=== PATIENT | male | born 2005 | race Caucasian/White ===

== ENCOUNTER → 2024-10-01 13:32 | Outpatient (REF) | payer BC, SELFPAY | LOC: RAD 13:32 | PROVIDERS: ATTENDING PHYSICIAN Orthopaedic Surgery Hand Surgery; FAMILY PHYSICIAN Internal Medicine | DX: M25.511 Pain in right shoulder (principal) | CPT/HCPCS: 23350; 73040; 73222 ==

== ENCOUNTER 2025-02-12 06:05 | Day surgery (SDC) | payer BC, SELFPAY ==
[2025-02-12] VITALS (8 sets, daily range): BP systolic 117–139; BP diastolic 56–80; BMI 23.1
[2025-02-12] MEDS: CELEBREX 200 MG PO (07:12)
[2025-02-12] MEDS: TYLENOL 1000 MG PO (07:13)
[2025-02-12] MEDS: NORMOSOL-R/PLASMALYTE-A 1000 IV (07:16)
== END 2025-02-12 11:45 | disposition home or self-care (01) ==
LOC: SDS 06:05
PROVIDERS: ATTENDING PHYSICIAN Orthopaedic Surgery Hand Surgery
DX: S43.431A Superior glenoid labrum lesion of right shoulder, initial encounter (principal); X58.XXXA Exposure to other specified factors, initial encounter
CPT/HCPCS: 29806